=== PATIENT | male | born 1985 | race African-American/Black ===

== ENCOUNTER 2016-12-29 18:55 | Inpatient (IN) | payer SELFPAY ==
--- NOTE | ~2016-12-29 | PN ---
Unit #: [id number] #: [id number] Patient: POLLO LUEVANO [id number] [facility] [address] [place] [address] [id number] I MR#: [id number] NAME: POLLO LUEVANO ROOM: P214 Age: 31 Sex: M Admission Date: 12/29/2016 : 1985 Attending Physician: Neville Zamora M.D. Admitting Physician: Neville Zamora M.D. Primary Care Physician: Primary Care Physician Nela MENDOZA NOTES DATE OF SERVICE: 01/02/2017 DISCUSSION Mr. Luevano has minimal detox symptoms today. His mood is better with a brighter affect. He is alert and fully oriented with no psychosis and no active SI. ASSESSMENT Opioid dependence. PLAN Anticipate discharge in the morning. Dictated by... Mary Ellen Sun/concepción TD: 01/03/2017 19:05 JOB #: [id number] [facility] PROGRESS NOTES Page 1 of 1 X Neville Zamora MD X PROGRESS NOTE
--- NOTE | ~2016-12-29 | HP ---
Unit #: [id number] #: [id number] Patient: POLLO LUEVANO [id number] [place] [address] [id number] I MR#: [id number] NAME: POLLO LUEVANO. ROOM: P214 Age: 31 Sex: M Admission Date: 12/29/2016 : 1985 Attending Physician: Neville Zamora M.D. Admitting Physician: Neville Zamora M.D. Primary Care Physician: Primary Care Physician No HISTORY AND PHYSICAL HISTORY OF PRESENT ILLNESS Pollo is a 31 year old admitted to [address] [place] [address] because of his drug use. He snorts heroin. PAST MEDICAL HISTORY 1. Long history of opioid abuse to include snorting heroin. 2. History of migraine headaches. PAST SURGICAL HISTORY Inguinal hernia repair. ALLERGIES No known drug allergies. SOCIAL HISTORY He does not smoke. Drinks alcohol rarely. Admits to a history of illicit substance abuse to include snorting heroin. FAMILY HISTORY Medically noncontributory. REVIEW OF SYSTEMS CONSTITUTIONAL: No fever or chills. HEENT: Denies any sore throat, ear pain or runny nose. CARDIOVASCULAR: Denies chest pain, irregular heart rhythm or palpitations. CHEST: Denies shortness of breath or cough. No hemoptysis. GASTROINTESTINAL: Denies nausea, vomiting, diarrhea or chronic constipation. ENDOCRINE: Denies history of increased thirst or urination. No recent significant weight loss or gain. GENITOURINARY: Denies dysuria, frequency, or hematuria. SKIN: Denies any rashes. HEMATOLOGIC: Denies history of increased bleeding or bruising. MUSCULOSKELETAL: Denies any hot, swollen joints. No generalized muscle pain. NEUROLOGIC: Denies problems with vision or speech. No frequent, severe headaches. No numbness, tingling or weakness in any extremities. Denies loss of bladder or bowel control. CURRENT MEDICATIONS Detox protocol. PHYSICAL EXAMINATION Unit #: [id number] #: [id number] Patient: POLLO LUEVANO GENERAL: Alert, well-nourished, in no apparent distress. VITAL SIGNS: Blood pressure 132/80, heart rate 80, respirations 16, temperature 98.6. WEIGHT: 145. HEIGHT: 5 feet 11 inches. SKIN: Warm and dry without rash or lesion. HEENT: Normocephalic. TMs not viewed. Oral and nasal passages clear. Conjunctivae clear. PERRLA. EOMs intact. NECK: Supple without lymphadenopathy or thyromegaly. HEART: Regular rate and rhythm without murmur. LUNGS: Clear. ABDOMEN: Soft, nontender. : Not done. EXTREMITIES: No evidence of cyanosis, clubbing or edema. Moves all without focal deficit. NEUROLOGICAL: Grossly within normal limits. Cranial Nerves: II: Visual fernandez are intact. III, IV AND : Extraocular movements are intact. Pupils are equal, round and reactive to light. V: Facial sensation is grossly normal. VII: Facial movements and expression are normal. VIII: Auditory acuity grossly intact. IX, X: Uvula is midline. Phonation is normal. XI: Patient shrugs shoulders and turns head normally. XII: Tongue protrudes in the midline. Sensory and Motor Function: Sensory and motor sensation is grossly normal. Motor: moves all extremities well. Coordination: Gait is normal. Deep Tendon Reflexes: Intact. IMPRESSION Psychiatric admission. RECOMMENDATIONS PSYCHIATRIC: Per psychiatrist. MEDICAL: See no contraindications to participate in facility's activities. MEDICAL PROGNOSIS Good. MEDICAL CONDITION Stable. Dictated by... Kaye Farrar P.A.-C. for Mary Ellen Melendez/francia TD: 12/30/2016 22:01 JOB #: [id number] Unit #: [id number] #: [id number] Patient: POLLO LUEVANO HISTORY AND PHYSICAL X Kaye Farrar X HISTORY AND PHYSICAL
--- NOTE | ~2016-12-29 | PN ---
Unit #: [id number] #: [id number] Patient: POLLO LUEVANO [id number] [facility] [address] [place] [address] [id number] MR#: [id number] NAME: POLLO LUEVANO. ROOM: P214 Age: 31 Sex: M Admission Date: 12/29/2016 : 1985 Attending Physician: Neville Zamora M.D. Admitting Physician: Neville Zamora M.D. Primary Care Physician: Primary Care Physician Nela HOLBROOK PROGRESS NOTES DATE 12/31/2016 DISCUSSION Mr. Luevano continues to have detox symptoms today. He said that he slept poorly despite the use of trazodone last night. His mood is mildly irritable with a congruent affect. He is alert and fully oriented with no active psychosis and no active SI. ASSESSMENT Polysubstance dependence. PLAN We will change trazodone to Seroquel 100 mg at bedtime as needed for insomnia and continue detox protocol. Dictated by... Mary Ellen Sun/reji TD: 01/02/2017 23:38 JOB #: [id number] [facility] PROGRESS NOTES X Neville Zamora MD PROGRESS NOTE
--- NOTE | ~2016-12-29 | PA ---
Unit #: [id number] #: [id number] Patient: POLLO CRUZ [id number] [facility] [address] [place] [address] [id number] I MR#: [id number] NAME: POLLO CRUZ. ROOM: P214 Age: 31 Sex: M Admission Date: 12/29/2016 : 1985 Date of Assessment: 12/30/2016 Attending Physician: Neville Zamora M.D. Admitting Physician: Neville Zamora M.D. Primary Care Physician: Primary Care Physician No PSYCHIATRIC ASSESSMENT DATE OF SERVICE 12/30/2016. INFORMANTS The patient, reliable; [facility] records, reliable. CHIEF COMPLAINT Opiate detox and depression. HISTORY OF PRESENT ILLNESS Mr. Cruz is a 31-year-old man with a previous history of alcohol abuse. He reports that about a year and half ago, he began using heroin and has become increasingly helpless and hopeless. He has difficulty maintaining sobriety and has active detox symptomatology. He was unable to contract for safety outside of the hospital, although he had no specific suicide plan or intent. He was admitted for detox and further assessment. PAST PSYCHIATRIC HISTORY Last admission to this facility was in 2013 due to alcoholism. He has also been admitted to the [facility] in the past. He currently does not take psychiatric medications. FAMILY PSYCHIATRIC HISTORY There is a family history of chemical dependence and some mood disorder resolved. The patient could not be more specific. 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 He lives in [place], [place] with his girlfriend and recently lost his great grandmother and a best friend. He reports some financial stress due to spending money on drugs. PAST MEDICAL HISTORY No chronic medical problems. MEDICATIONS None. ALLERGIES No known medication allergies. Unit #: [id number] #: [id number] Patient: POLLO CRUZ SUBSTANCE USE HISTORY As noted, the patient has been using about 0.5 g to 1 g of heroin daily. He has been unable to maintain sobriety in the outpatient setting and has been unable to tolerate detox. He occasionally drinks alcohol or smokes cannabis, and has remote history of experimentation with other drugs. MENTAL STATUS EXAMINATION The patient presented as a neatly dressed and groomed man who appeared his stated age. Vital signs were temperature 98.3, blood pressure 116/73, respirations 17, pulse was 90. His speech was spontaneous and easily understood. His musculoskeletal examination was calm. His mood was mildly depressed with a congruent affect. He was alert and fully oriented. His memory and concentration were intact. His thought processes were logical with no active psychosis. He reported fleeting suicidal ideation, but no specific plan or intent. Insight and judgment were fair. Fund of knowledge and abstraction were fair to good. ASSETS AND LIABILITIES The patient knows local resources, has supportive relationships, and is voluntary for treatment. Liabilities include recent relapse on heroin and difficulty maintaining sobriety. ADMITTING DIAGNOSES AXIS I: Opiate dependence with withdrawal, uncomplicated, F11.23. AXIS II: No diagnosis. AXIS III: None acute. AXIS IV: AXIS V: PSYCHIATRIC PLAN The patient was admitted and placed on suicide precautions and the opioid detox protocol. After my initial discussion with him, he declined initiation of an antidepressant medication at this time, but we will keep this option open for the future and monitor him through participation in dual diagnosis groups and activities. TREATMENT GOALS Resolution of intoxication, improvement in insight, and improvement in coping skills. DISCHARGE PLANNING The patient will follow up with chemical dependence resources through the community for followup and will be considered for psychiatric treatment as indicated. ESTIMATED LENGTH OF STAY 5 days. Dictated by... Neville Zamora M.D. JANET/concepción TD: 12/30/2016 22:52 JOB #: [id number] Unit #: [id number] #: [id number] Patient: POLLO CRUZ PSYCHIATRIC ASSESSMENT X Neville Zamora MD X PSYCHIATRIC ASSESSMENT
--- NOTE | ~2016-12-29 | DS ---
Unit #: [id number] #: [id number] Patient: POLLO LUEVANO [id number] [facility] [address] [place] [address] [id number] I MR#: [id number] NAME: POLLO LUEVANO. ROOM: P214 Age: 31 Sex: M Admission Date: 12/29/2016 : 1985 Discharge Date: 01/03/2017 Attending Physician: Neville Zamora M.D. Primary Care Physician: Primary Care Physician No DISCHARGE SUMMARY REASON FOR ADMISSION Pollo is a 31-year-old man with a previous history of alcohol abuse, who has been using heroin about a year and a half, has become increasingly helpless and hopeless, and was unable to contract for safety outside of the hospital, although he had no specific suicide plan or intent. He was admitted for stabilization. DIAGNOSTIC STUDIES LABORATORY RESULTS: RPR was nonreactive. CMP and CBC were clinically insignificant. HOSPITAL COURSE The patient was admitted and placed on the opioid detox protocol. Trazodone was initiated for insomnia, but was ineffective and was changed to Seroquel with improvement. He participated appropriately in unit groups and activities. On the date of discharge, he was once again able to contract for safety and expressed no suicidal ideation, intent, or plan. DISCHARGE DIAGNOSES Opioid dependence, F11.23. AXIS II No diagnosis. AXIS III None acute. BODY AFTER AXIS DISCHARGE INSTRUCTIONS Follow up with chemical dependence programming in the community per the social worker aide. DISCHARGE MEDICATIONS None. CONDITION AT DISCHARGE Improved. PROGNOSIS Good. DIET AND ACTIVITY Unit #: [id number] #: [id number] Patient: POLLO LUEVANO Per primary care doctor. Dictated by... Neville Zamora M.D. [facility]/concepción TD: 01/04/2017 02:27 JOB #: [id number] DISCHARGE SUMMARY Page 1 of 1 X Neville Zamora MD X DISCHARGE SUMMARY
[2017-01-01 13:43] LABS: BASOPHIL# 0.1 X10e3 (0-0.3); BASOPHIL% 2.5 % (0-2.5); EOSINOPHIL# 0.1 X10e3 (0-0.7); EOSINOPHIL% 2.7 % (0.0-7.0); HEMATOCRIT 38.2 % (38.0-50.0); HEMOGLOBIN 11.9 gm/dL (13.0-16.0); LYMPHOCYTE# 1.6 X10e3 (1.0-3.5); LYMPHOCYTE% 28.9 % (17.0-45.0); MEAN CELL VOLUME 70.5 FL (83-96); MEAN CORPUSCULAR HGB CONC 31.1 g/dL (30-36); MEAN PLATELET VOLUME 8.9 FL (6.5-11.5); MONOCYTE# 0.6 X10e3 (0-1.0); MONOCYTE% 10.1 % (3.0-12.0); NEUTROPHIL# 3.1 X10e3 (1.5-7.1); NEUTROPHIL% 55.8 % (40-75); PLATELET COUNT 391 X10e3 (140-420); RED BLOOD COUNT 5.42 X10e (3.90-5.60); WHITE BLOOD COUNT 5.5 X10e3 (4.0-10.5)
[2017-01-01 13:53] LABS: DIFF IND NO
[2017-01-01 14:08] LABS: ALBUMIN SERUM 4.7 g/dL (3.5-5.0); ALKALINE PHOSPHATASE 80 U/L (32-92); ALT (SGPT) 20 U/L (10-40); AST (SGOT) 23 U/L (10-42); BILIRUBIN,TOTAL 0.5 mg/dL (0.2-2.0); BLOOD UREA NITROGEN 8 mg/dL (9-23); BUN/CREATININE RATIO 8.88; CALCIUM SERUM 10.3 mg/dL (8.4-10.2); CARBON DIOXIDE 27 mmol/L (22-31); CHLORIDE 107 mmol/L (100-111); CREATININE SERUM 0.9 mg/dL (0.6-1.4); GLOM FILT RATE Estimated ABOVE60 mL/min (>60); GLUCOSE FASTING 103 mg/dL (70-110); POTASSIUM 3.7 mmol/L (3.5-5.1); PROTEIN TOTAL SERUM 8.1 g/dL (6.0-8.3); SODIUM 144 mmol/L (135-145)
== END 2017-01-03 15:53 | disposition home or self-care (01) | DRG 897 ==
LOC: P2S 18:55
PROVIDERS: Psychiatry & Neurology Psychiatry
PROC: HZ2ZZZZ Detoxification Services for Substance Abuse Treatment (ICD-10-PCS; principal; 2016-12-30)
PROC: 3E0234Z Introduction of Serum, Toxoid and Vaccine into Muscle, Percutaneous Approach (ICD-10-PCS; 2016-12-30)
DX: F11.23 Opioid dependence with withdrawal (principal); F32.9 Major depressive disorder, single episode, unspecified; Z23 Encounter for immunization
CPT/HCPCS: 80053; 85025; 86592; 90688